=== PATIENT | female | born 1960 | race African-American/Black ===

== ENCOUNTER 2016-12-08 22:40 | Observation (INO) | payer BC, OTHER ==
--- NOTE | ~2016-12-08 | HP ---
History And Physical [place] [address] [facility] [place]. [address] NAME: STAN OAKLEY : 64 STATUS : ADM Candelario PAT#: [id number] AGE: 56 ADM/REG DATE : 12/08/16 MR#: [id number] REPORT SERV DATE: 12/09/16 DICTATED BY: CARRIE LIU DATE: 12/09/16 REPORT STATUS : Draft TRANSCRIBED BY: JARETT DATE: 12/09/16 DATE OF ADMISSION: 12/08/2016 PSHYCHOLOGY: Dereck Phelps. CHIEF COMPLAINT: Atypical chest pain. HISTORY OF PRESENT ILLNESS: A pleasant 56-year-old black female with no known history of CAD, states that on 12/08/2016, she experienced chest pain "all day." She indicates the chest pain occurred under her left breast and radiated toward her back. It began after she woke up while lying in bed watching TV. She denies any shortness of breath, nausea, diaphoresis, dizziness, or belching. At its most intense, she rates it a 10/10. At the time of the interview in the [facility], she is pain free. The symptoms seemed to improve and resolved with aspirin, nitroglycerin, and Pepcid. There is no clear pattern, it seems to be a solitary event, although it persisted. There is no clear exertional component and the pain is not reproducible on exam. The patient denies any personal history of myocardial infarction, stroke, DVT, or pulmonary embolus. The patient denies any recent fever or chills, no palpitations, no syncopal episodes. Denies PND or orthopnea. PAST MEDICAL HISTORY: 1. Hypertension. 2. History of panic attacks and anxiety and followed at [facility]. 3. Denies dyslipidemia or diabetes. 4. Hard of hearing. 5. Tobacco use. PAST SURGICAL HISTORY: Cervical neck surgery twice, bilateral elbow surgery, right hand surgery, and partial hysterectomy. SOCIAL HISTORY: She is single with two children. Currently not working. Previously employed at the [employer], does not have an exercise routine. Reports a one-pack of cigarettes lasts her two weeks. She has smoked for the last 30 years. She drinks occasionally at times on a weekend, possibly two quarts of a beer. No illicits. FAMILY HISTORY: Mother of cirrhosis of the liver. Father at the young age of a gunshot wound. REVIEW OF SYSTEMS: A 14-point review of systems was performed, significant for HPI. No other contributory diagnoses identified. ALLERGIES: CODEINE, HALLUCINATES, AND NAUSEA AND VOMITING. MEDICATIONS: Home medicines: Vitamin B12 1000 mcg monthly, Prozac 40 mg nightly, Ativan 0.5 History And Physical [address] [address] NAME: STAN OAKLEY : 64 STATUS : ADM Candelario PAT#: [id number] AGE: 56 ADM/REG DATE : 12/08/16 MR#: [id number] REPORT SERV DATE: 12/09/16 DICTATED BY: CARRIE LIU DATE: 12/09/16 REPORT STATUS : Draft TRANSCRIBED BY: JARETT DATE: 12/09/16 mg twice daily, Roxicodone 15 mg every 6 hours p.r.n., Minipress 1 mg nightly, and Seroquel 200 mg at bedtime. PHYSICAL EXAMINATION: BLOOD PRESSURE: 139/73, PULSE: 80, RESPIRATORY RATE: 18, TEMPERATURE: 97.6, O2 saturation 98% on room air. HEIGHT: 5 feet 1 inch, WEIGHT: 122 pounds. BMI of 23. GENERAL: Cooperative, in no apparent distress. HEENT: Pupils 2 mm, sclera nonicteric. Nares patent. Moist mucous membranes. No xanthelasma. NECK: Trachea midline, no thyromegaly. No JVD. No bruits. LYMPH: No cervical lymphadenopathy. No supraclavicular lymphadenopathy. RESPIRATORY: Unlabored respirations. Breath sounds clear bilaterally to posterior auscultation. No wheezes or rhonchi. CARDIOVASCULAR: Regular rate. No murmur, rub or gallop appreciated. EXTREMITIES: Without edema. Pulses 2+ bilaterally. ABDOMEN: Soft, nontender, nondistended, normal bowel sounds auscultated throughout. No organomegaly. SKIN: Warm, dry extremities. No pallor, or cyanosis. PSYCHIATRIC: Appropriate affect. Alert, oriented x3. LABORATORY DATA: Troponin is less than 0.02 twice. Potassium 4.4, BUN 15, creatinine 0.62, glucose 96, magnesium 2.3, and lipase 221. WBC of 7.4, hemoglobin 13.0, hematocrit 37.8, and platelet count 255,000. D-dimer is less than 0.27. EKG, sinus rhythm. Echo, 03/2016: EF of 55%. ASSESSMENT AND PLAN: 1. Atypical chest pain. The patient has been observed in the CPOU overnight to rule out myocardial infarction with serial enzymes and serial EKGs and held n.p.o. We will proceed with MPI today. The patient will be discharged home if low risk, no ischemia. If anything suggestive of ischemia, Cardiology referral will be initiated. Otherwise, the patient will be asked to follow up with her PCP in one to two weeks with all studies being sent to that office. 2. Hypertension. Monitor blood pressure. Continue home medications. 3. Ongoing tobacco use. Counseled regarding cessation. 4. Anxiety. Provide home medications as prescribed. 5. Hard of hearing. Clear concise instruction and education to the patient to facilitate clear communication. OSCAR/JARETT Carrie Liu, CAMELIA, [employer] / [phone] History And Physical [address] [address] NAME: STAN OAKLEY : 64 STATUS : ADM Candelario PAT#: [id number] AGE: 56 ADM/REG DATE : 12/08/16 MR#: [id number] REPORT SERV DATE: 12/09/16 DICTATED BY: CARRIE LIU DATE: 12/09/16 REPORT STATUS : Draft TRANSCRIBED BY: DEVYNL DATE: 12/09/16 CC: Carrie Liu, MSN, [employer] Ines Rogers NP
[2016-12-08 21:10] LABS: BASOPHILS 0.5 %; BASOPHILS ABSOLUTE 0.04 10/3/uL (0.0-0.16); EOSINOPHILS 1.5 %; EOSINOPHILS ABSOLUTE 0.11 10/3/uL (0.0-0.53); HEMATOCRIT 37.8 % (36.0-48.0); IMMATURE GRANULOCYTES 0.3 %; IMMATURE GRANULOCYTES ABSOLUTE 0.02 10/3/uL (0.0-0.11); LYMPHOCYTES 24.5 %; MANUAL DIFF NO %; MEAN CORPUS HGB CONC 34.4 g/dL (32.0-36.0); MEAN CORPUSCULAR HEMOGLOB 26.6 pg (26.0-34.0); MEAN CORPUSCULAR VOLUME 77.3 fL (80-100); MEAN PLATELET VOLUME 9.2 fL (9.2-13.0); MONOCYTES 6.7 %; MONOCYTES ABSOLUTE 0.49 10/3/uL (0.21-1.20); NEUTROPHILS 66.5 %; NEUTROPHILS ABSOLUTE 4.89 10/3/uL (2.02-8.40); PLATELET COUNT 255 10/3/uL (150-400); RBC DISTRIBUTION WIDTH 15.1 % (12.0-16.0); RED CELL COUNT 4.89 10/6/uL (4.0-5.6); WHITE BLOOD CELLS 7.4 10/3/uL (4.5-10.5)
[2016-12-08 21:16] LABS: PROTIME (NOT ORD) 13.4 SEC (12.0-14.5)
[2016-12-08 21:17] LABS: PARTIAL THROMBO TIME 24.3 SEC (22.5-37.2)
[2016-12-08 21:25] LABS: BUN (BLOOD UREA NITROGEN) 15 MG/DL (6-23); CALCIUM, SERUM 9.4 MG/DL (8.5-10.4); CHEST PAIN PROFILE TAT 0 Hrs 21 Mins; CHLORIDE, SERUM 104 MMOL/L (96-112); CREATININE 0.62 MG/DL (0.55-1.02); GFR AFRICAN AMERICAN 118 ML/MIN (>=60); GFR NON AFRICAN AMERICAN 102 ML/MIN (>=60); GLUCOSE, SERUM 96 MG/DL (60-99); POTASSIUM, SERUM 4.4 MMOL/L (3.5-5.3); SODIUM, SERUM 140 MMOL/L (135-148); TROPONIN I <0.02 NG/ML (<0.05)
[2016-12-08 21:27] LABS: CO2 (CARBON DIOXIDE) 30 MMOL/L (24-34)
[2016-12-08 22:03] LABS: D-DIMER QUANTITATIVE < 0.27 ug/mLFEU (< 0.50)
[~2016-12-08 22:40] MED LIST: ABILIFY20 MG PO; ASAB PO; ATV.5 PO; B121000P IM; EXCEDRINTB PO; LIOR10 PO; MINIPRESS 1 MG C1 MG PO; MSCONT15 PO; MSCONTIN PO; NEUR300 PO; PROZAC PO; PROZAC40 MG PO; ROXICODONE15 MG PO; SEROQUEL200 MG PO; TAPAZOLE5 MG OR; TYLENOL PM PO; VITAMIN D1000 UNI1 PO; ZYRTEC ALLGY10 MG PO
== END 2016-12-09 16:29 | disposition home or self-care (01) ==
LOC: ER 22:40 → CDU1 23:36 → CDU2 12-09 00:32
PROVIDERS: Emergency Medicine
DX: R07.89 Other chest pain (principal); I10 Essential (primary) hypertension; F41.9 Anxiety disorder, unspecified; F17.210 Nicotine dependence, cigarettes, uncomplicated; H91.90 Unspecified hearing loss, unspecified ear; F32.9 Major depressive disorder, single episode, unspecified; Z90.711 Acquired absence of uterus with remaining cervical stump; Z98.890 Other specified postprocedural states; Z88.5 Allergy status to narcotic agent; Z79.899 Other long term (current) drug therapy
CPT/HCPCS: 71020; 78452; 80048; 83690; 83735; 84484; 85025; 85379; 85610; 85730; 93005; 93017; 96374; 99285; A9270-GY; A9502; G0378